=== PATIENT | female | born 1975 | race Caucasian/White ===

== ENCOUNTER 2016-09-14 21:37 | Emergency (ER) | payer OTHER ==
[~2016-09-14 21:37] MED LIST: Iopamidol 370 76% 100 ML VIAL ONE
--- NOTE | 2016-09-14 23:02 | CT ---
CT OF THE BRAIN WITHOUT CONTRAST: 09/14/[address] was done for evaluation of facial and hand numbness. The ventricles are normal in s ize with no shift. No intracranial bleeding, mass or sign of acute stroke was found. There is good g ray-white differentiation. The calvarium appears normal. The sphenoid sinus and mastoid air cells ar e clear. IMPRESSION: No acute intracranial findings. POS: HOME
[2016-09-14 23:19] LABS: Bilirubin Negative (Negative); Blood, Urine Trace (Negative); Clarity Clear (Clear); Glucose, Urine (Dipstick) Negative (Negative); Leukocyte Negative (Negative); Nitrite Negative (Negative); Protein, Urine (Dipstick) Negative (Neg-Trace); Specific Gravity, Urine 1.006 (1.002-1.036); Urobilinogen 0.2 mg/dL (0.2-1.0)
[2016-09-14 23:27] LABS: Bacteria/HPF Rare-Few HPF (None Seen); RBC/HPF 0-3 HPF (0-3); Squamous Epithelial 0-3 HPF (0-3); WBC/HPF 0-3 HPF (0-3)
[2016-09-14] MEDS ORDERED: Ketorolac Tromethamine 30 MG/ML VIAL ONE (23:43)
[2016-09-14 23:46] LABS: #Basophils 0.1 thou/uL (0.0-0.2); #Eosinphils 0.7 thou/uL (0.0-0.7); #Lymphocytes 5.6 thou/uL (1.20-3.40); #Monocytes 1.2 thou/uL (0.11-0.59); #Neutrophils 8.1 thou/uL (1.40-6.50); %Basophils 0.8 % (0.0-1.0); %Eosinophils 4.5 % (0.0-10.0); %Lymphocytes 35.8 % (21.0-51.0); %Monocytes 7.6 % (0.0-10.0); %Neutrophils 51.3 % (42.0-75.0); Hemoglobin 15.3 g/dL (12.0-16.0); Mean Corpuscular Hemoglobin 31.6 pg (27.0-31.0); Mean Platelet Volume 6.5 fL (7.4-10.4); Platelet Count 329 thou/uL (130-400); RBC Distribution Width 12.5 % (11.5-14.5); Red Blood Cell (RBC) Count 4.85 mill/uL (4.20-5.40); White Blood Cell (WBC) Count 15.7 thou/uL (4.8-10.8)
[2016-09-14 23:50] LABS: INR-International Normal Ratio 1.1; Prothrombin Time 14.3 SEC (12.0-14.7)
[2016-09-14 23:51] LABS: BHCG - Serum Negative (NEGATIVE); Pregs Control Background? CLEAR/WHITE (CLR/WHITE); Pregs Control Bar Appear? YES (CONTROL BAR)
[2016-09-14 23:59] LABS: ALT (SGPT) 15 U/L (8-55); AST (SGOT) 14 U/L (5-34); Albumin 4.3 g/dL (3.5-5.0); Alkaline Phosphatase 64 U/L (40-150); Anion Gap 16 mmol/L (10-20); BUN (Urea Nitrogen) 8 mg/dL (7.0-18.7); Bilirubin, Total 0.3 mg/dL (0.2-1.2); Calc. Creatinine Clearance 0 mL/min (70-130); Calcium 9.7 mg/dL (7.8-10.44); Carbon Dioxide 24 mmol/L (22-29); Chloride 104 mmol/L (98-107); Estimated GFR-MDRD 87; Globulin 3.4 g/dL (2.4-3.5); Glucose 91 mg/dL (70-105); Potassium 3.8 mmol/L (3.5-5.1); Protein, Total 7.7 g/dL (6.0-8.3); Sodium 140 mmol/L (136-145)
[2016-09-15 00:01] LABS: CKMB 0.5 ng/mL (0-6.6); Troponin I Less than 0.010 ng/mL (< 0.028)
--- NOTE | 2016-09-15 08:07 | CT ---
PRELIMINARY REPORT/[facility]/EMERGENCY AFTER HOURS PROCEDURE: EXAM: CT Angiography Chest With Intravenous Contrast CLINICAL HISTORY: 41 years old, female; Signs and symptoms; Other: Rt. Arm/hand numbness; Other: R/O disection; Patien t HX: Rt. Sided numbness to hand/arm R/O aortic dissection TECHNIQUE: Axial computed tomographic angiography images of the chest with intravenous contrast using pulmonary embolism protocol. This CT exam was performed using one or more of the following dose reduction ellie hniques: automated exposure control, adjustment of the mA and/or kV according to patient size, and/o r use of iterative reconstruction technique. Coronal and sagittal reformatted images were created and reviewed. CONTRAST: 95 mL of ISO 370 administered intravenously. COMPARISON: No relevant prior studies available. FINDINGS: Pulmonary arteries: There is no evidence of peripheral filling defects within the pulmonary arterial circulation to suggest pulmonary embolism. The pulmonary arteries are not enlarged. Aorta: There is no evidence of aortic dissection, leak, rupture, or other complications. The aorta i s normal. Lungs: Normal. No mass. No consolidation. Pleural space: Normal. No significant effusion. No pneumothorax. Heart: The cardiac structures are normal. No significant pericardial effusion. No evidence of RV dys function. Mediastinum: The trachea is normal. Thyroid: The visualized thyroid gland is unremarkable. Bones/joints: No acute fracture. No dislocation. Soft tissues: Normal. Lymph nodes: Normal. No enlarged lymph nodes. IMPRESSION: There is no evidence of aortic dissection, leak, rupture, or other complications. EXAM: CT Angiography Abdomen With Intravenous Contrast CLINICAL HISTORY: 41 years old, female; Signs and symptoms; Other: Rt. Arm/hand numbness; Other: R/O disection; Patien t HX: Rt. Sided numbness to hand/arm R/O aortic dissection TECHNIQUE: Axial computed tomographic angiography images of the abdomen with intravenous contrast. This CT exam was performed using one or more of the following dose reduction techniques: automated exposure cont rol, adjustment of the mA and/or kV according to patient size, and/or use of iterative reconstructio n technique. Coronal and sagittal reformatted images were created and reviewed. CONTRAST: 95 mL of ISO 370 administered intravenously. EXAM DATE/TIME: Exam ordered 09/14/2016 11:52 PM COMPARISON: No relevant prior studies available. FINDINGS: Lower thorax: No acute findings. Aorta: There is no evidence of aortic dissection, leak, rupture, or other complications. Celiac trunk and mesenteric arteries: No acute findings. No occlusion or significant stenosis. Renal arteries: No acute findings. No occlusion or significant stenosis. Liver: There are no focal liver lesions present. Gallbladder and bile ducts: There has been a cholecystectomy. No ductal dilation. Pancreas: The pancreas is normal. No ductal dilation. Spleen: The spleen is normal. Adrenals: The adrenal glands are normal. Kidneys and ureters: The kidneys are normal. No hydronephrosis. Stomach and bowel: The stomach is normal. The duodenum is unremarkable. No obstruction. No mucosal t hickening. Intraperitoneal space: Normal. No significant fluid collection. No free air. Bones/joints: No acute fracture. No dislocation. Soft tissues: Normal. No mass. Lymph nodes: Normal. No enlarged lymph nodes. Other findings: Partially visualized uterus is unremarkable. IMPRESSION: No acute findings. Thank you for allowing us to participate in the care of your patient. Dictated and Authenticated by: Josiah Jacobson MD 09/15/2016 12:58 AM Central Time ([place] \T\ [place]) FINAL REPORT CT AORTIC DISSECTION WITH CONTRAST: Date: 09/15/[address] of the thorax and abdomen was done to evaluate the patient for a possible aortic dissectio n. Axial slices were acquired after giving a bolus of IV contrast. Coronal and sagittal reconstructi ons were done. FINDINGS: CT ANGIO THORAX: The aorta appears normal. There is no sign of significant arteriosclerosis. No dissection, aneurysm, or other finding of concern was encountered. The pulmonary arteries fill well and appear normal. Th ere were no filling defects to suggest emboli. The lungs are clear. No infiltrate, nodule, or effusi on was seen. The thoracic vertebra were unremarkable. CT ANGIO ABDOMEN: The abdominal aorta also appears normal. There was no aneurysm or dissection. The celiac artery, SMA , and YASIR all fill appropriately. No arterial abnormalities were appreciated. All major organs appear intact. The liver, spleen, pancreas, kidneys, and adrenal glands all showed no acute findings. There may be a tiny subcentimeter cyst in the left kidney. A few bright areas in the kidneys are difficult to tell if they are calculi, opacified vessels, or collecting systems. A n oncontrast study would better show this. The bowel was unremarkable. There was no sign of bowel dilation or thickening. The upper pelvis is i ncluded on the study and showed no abnormality. There is some mild concentric bulging of the L4-L5 d isc. IMPRESSION: No evidence for aortic dissection or other acute change. Report in agreement with preliminary reading by Mary. POS: HOME
== END 2016-09-15 01:22 | disposition left against medical advice (07) ==
LOC: BURERS 21:37
DX: R20.0 Anesthesia of skin (principal); F41.9 Anxiety disorder, unspecified; F17.210 Nicotine dependence, cigarettes, uncomplicated
CPT/HCPCS: 36416; 70450; 71275; 80053; 81003; 81015; 82553; 84484; 84703; 85025; 85610; 85730; 93005; 96374; J1885

== ENCOUNTER 2016-11-04 23:06 | Emergency (ER) | payer OTHER ==
[2016-11-04] MEDS ORDERED: Famotidine 20 MG TAB ONE (23:25)
[2016-11-04] MEDS ORDERED: predniSONE 20 MG TAB ONE (23:25)
== END 2016-11-04 23:28 | disposition home or self-care (01) ==
LOC: BURERS 23:06
DX: S60.462A Insect bite (nonvenomous) of right middle finger, initial encounter (principal); F41.9 Anxiety disorder, unspecified; F17.210 Nicotine dependence, cigarettes, uncomplicated; W57.XXXA Bitten or stung by nonvenomous insect and other nonvenomous arthropods, initial encounter
CPT/HCPCS: 99282; J7506

== ENCOUNTER 2018-02-03 15:16 | Emergency (ER) | payer OTHER ==
[2018-02-03] MEDS ORDERED: methylPREDNISolone Sod Succ/PF 125 MG/2 ML VIAL ONE (15:42)
== END 2018-02-03 16:11 | disposition home or self-care (01) ==
LOC: BURERS 15:16
DX: J98.01 Acute bronchospasm (principal); F41.9 Anxiety disorder, unspecified; F17.210 Nicotine dependence, cigarettes, uncomplicated; Z71.6 Tobacco abuse counseling
CPT/HCPCS: 87804; 94640; 96372; 99406; J2930; J7620

== ENCOUNTER 2018-11-17 12:57 | Emergency (ER) | payer OTHER, SELFPAY ==
[2018-11-17] MEDS ORDERED: Adacel (T-DAP) 0.5 ML SYRINGE ONE (13:09)
== END 2018-11-17 13:17 | disposition home or self-care (01) ==
LOC: BURERS 12:57
DX: S91.332A Puncture wound without foreign body, left foot, initial encounter (principal); F32.9 Major depressive disorder, single episode, unspecified; F17.210 Nicotine dependence, cigarettes, uncomplicated; W26.8XXA Contact with other sharp object(s), not elsewhere classified, initial encounter
CPT/HCPCS: 90471; 90715

== ENCOUNTER 2019-04-13 19:42 | Emergency (ER) | payer SELFPAY ==
--- NOTE | 2019-04-13 22:16 | RAD ---
LEFT KNEE FOUR VIEWS: 04/13/19 No fracture was seen. A joint effusion is present. The articular surfaces are smooth. IMPRESSION: Small joint effusion. POS: HOME
== END 2019-04-13 20:08 | disposition home or self-care (01) ==
LOC: BURERS 19:42
DX: M25.562 Pain in left knee (principal); F32.9 Major depressive disorder, single episode, unspecified; F17.210 Nicotine dependence, cigarettes, uncomplicated; W17.89XA Other fall from one level to another, initial encounter

== ENCOUNTER 2021-06-04 16:07 | Outpatient (CLI) | payer OTHER | END 2021-06-04 16:08 | disposition home or self-care (01) | LOC: BURRAD 16:07 | PROVIDERS: ATTEND Nurse Practitioner Family | DX: R06.00 Dyspnea, unspecified (principal) | CPT/HCPCS: 71046 ==

== ENCOUNTER 2021-06-23 15:48 | Emergency (ER) | payer OTHER ==
[2021-06-23] MEDS ORDERED: Morphine 4 MG/ML VIAL ONE (16:31)
[2021-06-23 16:38] LABS: #Basophils 0.1 thou/uL (0.0-0.2); #Eosinphils 0.4 thou/uL (0.0-0.7); #Lymphocytes 3.6 thou/uL (1.20-3.40); #Monocytes 0.8 thou/uL (0.11-0.59); #Neutrophils 5.5 thou/uL (1.40-6.50); %Lymphocytes 34.4 % (21.0-51.0); %Monocytes 7.9 % (0.0-10.0); %Neutrophils 52.7 % (42.0-75.0); Hemoglobin 14.5 g/dL (12.0-16.0); Mean Corpuscular HGB CONC 32.9 g/dL (32.0-36.0); Mean Corpuscular Hemoglobin 32.1 pg (27.0-31.0); Mean Corpuscular Volume 97.6 fL (78.0-98.0); Mean Platelet Volume 7.2 fL (7.4-10.4); Platelet Count 386 thou/uL (130-400); RBC Distribution Width 12.4 % (11.5-14.5); Red Blood Cell (RBC) Count 4.52 mill/uL (4.20-5.40); White Blood Cell (WBC) Count 10.3 thou/uL (4.8-10.8)
[2021-06-23 16:51] LABS: ALT (SGPT) 13 U/L (8-55); AST (SGOT) 11 U/L (5-34); Albumin 4.1 g/dL (3.5-5.0); Alkaline Phosphatase 61 U/L (40-110); Anion Gap 13 mmol/L (10-20); BUN (Urea Nitrogen) 9 mg/dL (7.0-18.7); Bilirubin, Total 0.5 mg/dL (0.2-1.2); Calc. Creatinine Clearance 0 mL/min (70-130); Calcium 9.7 mg/dL (7.8-10.44); Carbon Dioxide 21 mmol/L (22-29); Chloride 108 mmol/L (98-107); Globulin 3.5 g/dL (2.4-3.5); Glucose 105 mg/dL (70-105); Protein, Total 7.6 g/dL (6.0-8.3); Sodium 138 mmol/L (136-145)
[2021-06-23] MEDS ORDERED: Aspirin Chewable 81 MG TAB ONE (17:43)
[2021-06-23 19:04] LABS: Troponin I Less than 0.010 ng/mL (< 0.028)
[2021-06-24 14:03] LABS: SARS-CoV-2 PCR by NAA Not Detected (NotDetected)
== END 2021-06-23 20:25 | disposition short-term general hospital (02) ==
LOC: BURERS 15:48
DX: R07.89 Other chest pain (principal); R94.31 Abnormal electrocardiogram [ECG] [EKG]; J44.9 Chronic obstructive pulmonary disease, unspecified; I25.2 Old myocardial infarction; F17.210 Nicotine dependence, cigarettes, uncomplicated; Z20.822 Contact with and (suspected) exposure to COVID-19; Z95.5 Presence of coronary angioplasty implant and graft; Z79.82 Long term (current) use of aspirin; Z79.899 Other long term (current) drug therapy
CPT/HCPCS: 36415; 71045; 80053; 83880; 84484; 85025; 93005; 94760; 96374; J2270; U0003; U0005

== ENCOUNTER 2021-10-03 09:53 | Emergency (ER) | payer OTHER ==
[2021-10-03] MEDS ORDERED: Ondansetron ODT 4 MG TAB ONE (10:16)
== END 2021-10-03 11:04 | disposition home or self-care (01) ==
LOC: BURERS 09:53
DX: U07.1 COVID-19 (principal); J44.9 Chronic obstructive pulmonary disease, unspecified; I25.2 Old myocardial infarction; Z79.899 Other long term (current) drug therapy
CPT/HCPCS: 87804; 99283; Q0162; U0003; U0005

== ENCOUNTER 2021-11-12 13:39 | Emergency (ER) | payer OTHER ==
[2021-11-12] MEDS ORDERED: traMADol HCl 50 MG TAB ONE (14:15)
== END 2021-11-12 14:35 | disposition home or self-care (01) ==
LOC: BURERS 13:39
DX: K43.9 Ventral hernia without obstruction or gangrene (principal); F17.210 Nicotine dependence, cigarettes, uncomplicated; Z79.899 Other long term (current) drug therapy; Z79.82 Long term (current) use of aspirin
CPT/HCPCS: 99283

== ENCOUNTER 2022-12-19 13:13 | Outpatient (CLI) | payer OTHER | END 2022-12-19 13:14 | disposition home or self-care (01) | LOC: BURRAD 13:13 | PROVIDERS: ATTEND Nurse Practitioner Family | DX: M54.41 Lumbago with sciatica, right side (principal) | CPT/HCPCS: 72100 ==

== ENCOUNTER 2023-08-04 11:57 | Outpatient (CLI) | payer OTHER | END 2023-08-04 11:58 | disposition home or self-care (01) | LOC: BURRAD 11:57 | PROVIDERS: ATTEND Nurse Practitioner Family | DX: M25.551 Pain in right hip (principal) ==

== ENCOUNTER 2024-10-09 21:57 | Emergency (ER) | payer OTHER, SELFPAY ==
[2024-10-09 22:47] LABS: #Basophils 0.1 thou/uL (0.0-0.2); #Eosinophils 0.9 thou/uL (0.0-0.7); #Lymphocytes 4.9 thou/uL (1.20-3.40); #Monocytes 0.6 thou/uL (0.11-0.59); #Neutrophils 5.0 thou/uL (1.40-6.50); %Basophils 0.9 % (0.0-1.0); %Eosinophils 7.6 % (0.0-10.0); %Lymphocytes 42.5 % (21.0-51.0); %Monocytes 5.3 % (0.0-10.0); %Neutrophils 43.7 % (42.0-75.0); Hematocrit 43.5 % (36.0-47.0); Hemoglobin 15.1 g/dL (12.0-16.0); Mean Corpuscular Hemoglobin 31.7 pg (27.0-31.0); Mean Corpuscular Volume 91.4 fl (78.0-98.0); Platelet Count 389 10x3/uL (130-400); Red Blood Cell (RBC) Count 4.76 mill/uL (4.20-5.40); White Blood Cell (WBC) Count 11.5 10x3/uL (4.8-10.8)
[2024-10-09] MEDS ORDERED: Aspirin Chewable 81 MG TAB ONE (22:56)
[2024-10-09] MEDS ORDERED: Acetaminophen 500 MG TAB ONE (22:56)
[2024-10-09 23:05] LABS: ALT (SGPT) 12 U/L (Less than 34); AST (SGOT) 16 U/L (11-34); Albumin 4.1 g/dL (3.1-4.5); Alkaline Phosphatase 64 U/L (40-110); Anion Gap 18 mmol/L (10-20); BUN (Urea Nitrogen) 10 mg/dL (7.0-18.7); Bilirubin, Total 0.2 mg/dL (0.3-1.2); Calc. Creatinine Clearance 0 mL/min (70-130); Calcium 9.8 mg/dL (7.8-10.44); Carbon Dioxide 23 mmol/L (22-29); Chloride 103 mmol/L (98-107); Globulin 3.7 g/dL (2.4-3.5); Glucose 90 mg/dL (70-105); Potassium 3.7 mmol/L (3.5-5.1); Sodium 140 mmol/L (136-145); Troponin I Less than 0.010 ng/mL (< 0.028)
== END 2024-10-09 23:18 ==
LOC: BURERS 21:57
DX: R07.89 Other chest pain (principal); I25.2 Old myocardial infarction; J44.9 Chronic obstructive pulmonary disease, unspecified; F17.210 Nicotine dependence, cigarettes, uncomplicated; Z55.6 Problems related to health literacy
CPT/HCPCS: 71045; 80053; 84484; 85025; 93005

== ENCOUNTER 2025-01-13 14:35 | Emergency (ER) | payer OTHER, SELFPAY | END 2025-01-13 16:15 | disposition home or self-care (01) | LOC: BURERS 14:35 | DX: M25.511 Pain in right shoulder (principal); I25.10 Atherosclerotic heart disease of native coronary artery without angina pectoris; F17.210 Nicotine dependence, cigarettes, uncomplicated; Z95.5 Presence of coronary angioplasty implant and graft; X50.1XXA Overexertion from prolonged static or awkward postures, initial encounter | CPT/HCPCS: 99283 ==